=== PATIENT | female | born 1985 ===

== ENCOUNTER 2022-02-13 08:21 | Inpatient (IN) ==
[2022-02-13] MEDS ORDERED: miSOPROStoL 50 MCG TAB PO ONE ×4 (09:22→22:15)
[2022-02-13] MEDS ORDERED: LACTATED RINGER'S 1,000 ML IV PRN (09:22)
[2022-02-13] MEDS ORDERED: OXYTOCIN 30 UNITS/500 ML BAG IV PRN (09:22)
[2022-02-13 10:09] LABS: Hematocrit (blood only) 31.8 % (34.1-44.9); Hemoglobin 10.4 g/dl (12.0-16.0); Mean Corpuscular Hemoglobin 27.8 pg (25.0-34.0); Mean Corpuscular Hgb Conc 32.7 g/dL (32.0-36.0); Platelet Count 173 K/uL (130-400); RDW Coefficient of Variation 13.2 % (11.5-14.5); RDW Standard Deviation 41.1 fL (36.4-46.3); Red Blood Count 3.74 M/uL (3.93-5.22); White Blood Count 7.87 K/ul (4.8-10.8)
[2022-02-13 10:58] LABS: Rubella IgG Ab Immune (Immune)
[2022-02-13] MEDS ORDERED: Nursing to Pharmacy Communication SCH (11:00)
[2022-02-13] MEDS: MONTELUKAST SODIUM 10 MG TABLET PO SCH (18:00)
[2022-02-13] MEDS: buprenorphine HCL 8 MG SUBL SL SCH (21:10)
[2022-02-14] MEDS ORDERED: miSOPROStoL 50 MCG TAB PO ONE ×2 (02:37→22:00)
[2022-02-14 06:56] LABS: HBSAG NON-REACTIVE (NON-REACTIVE)
[2022-02-14] MEDS ORDERED: BUTORPHANOL TARTRATE 1 MG/ML VIAL IV ONE (07:20)
[2022-02-14] MEDS ORDERED: ePHEDrine sulfate 50 MG/ML AMP ONE (07:57)
[2022-02-14] MEDS ORDERED: SODIUM CHLORIDE 0.9% INJ 10 ML VIAL ONE (07:57)
[2022-02-14] MEDS ORDERED: fentaNYL citrate 100 MCG/2 ML VIAL ONE (07:57)
[2022-02-14] MEDS ORDERED: BUPIVACAINE 0.25% 30 ML VIAL ONE (07:57)
[2022-02-14] MEDS ORDERED: LIDOCAINE 2%/EPINEPHRINE 1:200,000 20 ML SDV ONE (07:57)
[2022-02-14] MEDS ORDERED: fentaNYL 2MCG/ML ROPIVACAINE 1.25MG/ML 100 ML BAG EPI ONE (07:58)
[2022-02-14] MEDS ORDERED: NALOXONE HCL 1 MG in SODIUM CHLORIDE 0.9% 1000ML 1,000 ML IV PRN (08:00)
[2022-02-14] MEDS ORDERED: ePHEDrine sulfate 50 MG/ML AMP IV PRN (08:00)
[2022-02-14] MEDS ORDERED: NALOXONE HCL 0.4 MG/1 ML VIAL/CARP IV PRN (08:00)
[2022-02-14] MEDS ORDERED: diphenhydrAMINE 50 MG/ML VIAL IV PRN (08:00)
[2022-02-14] MEDS ORDERED: NALBUPHINE HCL INJ 10 MG/ML AMP IV PRN (08:00)
[2022-02-14] MEDS ORDERED: fentaNYL 2MCG/ML ROPIVACAINE 1.25MG/ML 100 ML BAG EPI PRN (08:00)
--- NOTE | 2022-02-14 08:00 | Anesthesiology Consultation ---
Date of Service February 14, 2022 Assessment & Plan (1) Encounter for pre-operative examination: Chart Review Chart Review: Acceptable Risk for Surgery and Patient NOT seen in Pre Admission Testing Consults Requested none History Height/Weight Height: 5 ft 4 in Weight: 82.554 kg Allergies Allergy/AdvReac Type Severity Reaction Status Date / Time No Known Allergies Allergy Unknown Verified 07/28/21 10:33 Medications Home Medications Medication Instructions Recorded Confirmed Last Taken buprenorphine HCl 8 mg sublingual 12 mg sublingual DAILY 08/02/18 08/02/18 02/13/22 07:30 tablet vits no.124-ferrous fum 1 tab PO DAILY 08/02/18 02/13/22 08/01/18 27 mg iron-folic acid 800 mcg tablet ( Vitamin) Active Medications Generic Name Dose Route Start Last Admin Trade Name Freq PRN Reason Stop Dose Admin Buprenorphine HCl 12 mg 02/13/22 21:00 02/13/22 21:10 Buprenorphine Hcl 8 Mg Subl SL 03/15/22 20:59 12 mg Q24H BRAYDEN Administration Protocol Lactated Ringer's 1,000 mls @ 125 mls/hr 02/13/22 09:22 02/14/22 07:35 Lr IV 02/15/22 09:21 999 mls/hr .Q8H PRN Infusion L&D Protocol Protocol Montelukast Sodium 10 mg 02/13/22 21:00 02/13/22 18:00 Montelukast Sodium 10 Mg Tablet PO 03/15/22 20:59 10 mg HS BRAYDEN Administration Past Medical History Medical History Buprenorphine dependence Past Surgical History Surgical History [place] teeth extracted Social History Smoking Status: Former smoker tobacco type: cigarettes Hx Alcohol Use: No Hx Substance Use: Yes substance use type: does not use, former substance user and painkillers Last Used Substance Other:: 9 years ago Physical Exam Vital Signs Last Vital Signs Temp 97.9 F 02/14/22 07:17 Pulse 74 02/14/22 07:56 Resp 18 02/14/22 07:17 BP 123/77 02/14/22 07:56 Testing Laboratory Results 02/13/22 09:46
[2022-02-14] MEDS: buprenorphine HCL 8 MG SUBL SL SCH ×2 (08:13→20:55)
[2022-02-14] MEDS ORDERED: OXYTOCIN 30 UNITS/500 ML BAG IV PRN ×2 (08:25→10:29)
--- NOTE | 2022-02-14 09:28 | Anesthesiology Progress Note ---
Date of Service February 14, 2022 Anesthesia Post Procedure Vital Signs Vital Signs: Temp Pulse Resp BP Pulse Ox 02/13/22 19:25 98.8 F 18 02/13/22 09:40 97.5 F L 20 02/14/22 09:25 84 97 02/14/22 09:22 76 125/71 02/14/22 09:20 77 98 02/14/22 09:15 74 18 98 02/14/22 09:10 76 99 02/14/22 09:08 83 122/63 02/14/22 09:03 97.3 F L 02/14/22 09:05 71 100 02/14/22 09:00 96 H 98 02/14/22 08:55 104 H 97 02/14/22 08:52 90 121/67 02/14/22 08:50 93 H 16 97 02/14/22 08:48 81 124/78 02/14/22 08:45 75 16 99 02/14/22 08:40 88 98 02/14/22 08:41 94 H 132/74 02/14/22 08:22 18 02/14/22 08:22 18 02/14/22 08:25 18 02/14/22 08:25 18 02/14/22 08:29 18 02/14/22 08:29 18 02/14/22 08:36 18 02/14/22 08:36 18 02/14/22 08:38 93 H 125/78 02/14/22 08:37 71 132/72 02/14/22 08:35 99 02/14/22 08:35 87 02/14/22 08:35 102 H 118/76 02/14/22 08:33 100 H 116/61 02/14/22 08:30 96 H 125/68 99 02/14/22 08:28 81 134/70 02/14/22 08:27 101 H 127/69 02/14/22 08:25 100 02/14/22 08:25 79 02/14/22 08:25 82 133/71 02/14/22 08:23 75 133/62 02/14/22 08:20 80 100 02/14/22 08:21 93 H 156/67 H 02/14/22 08:18 103 H 138/68 02/14/22 08:16 82 136/64 02/14/22 08:15 83 131/71 02/14/22 08:13 84 137/77 02/14/22 07:56 74 123/77 02/14/22 07:41 70 141/81 H 02/14/22 07:18 82 129/72 02/14/22 07:17 18 02/14/22 07:17 97.9 F 18 02/13/22 22:28 18 02/13/22 22:28 97.9 F 18 02/13/22 22:27 75 115/67 02/13/22 19:17 84 108/70 02/13/22 16:46 76 107/56 L 02/13/22 14:14 97.7 F 76 20 114/55 L 02/13/22 09:33 83 117/57 L Pain Intensity Abdomen: Pain Intensity: 9 Transfer of Care Handoff Completed per policy Notes Mental Status: alert / awake / arousable and participated in evaluation Patient Amnestic to Procedure: Yes Nausea / Vomiting: adequately controlled Pain: adequately controlled Airway Patency, RR, SpO2: stable & adequate BP & HR: stable & adequate Hydration State: stable & adequate Anesthetic Complications: no major complications apparent and Pt Satisfied with anesthetic care
[2022-02-14] MEDS ORDERED: Nursing to Pharmacy Communication SCH (10:15)
[2022-02-14] MEDS ORDERED: BENZOCAINE 20% AER SPR 82.5 GM CAN EXT PRN (10:29)
[2022-02-14] MEDS ORDERED: ACETAMINOPHEN 325 MG TAB PO PRN (10:29)
[2022-02-14] MEDS ORDERED: DIPHTHERIA/TETANUS/PERTUSSIS 0.5 ML SYR/VIAL IM ONE (10:29)
[2022-02-14] MEDS ORDERED: HYDROCORTISONE ACETATE 25 MG SUPP PR PRN (10:29)
[2022-02-14] MEDS ORDERED: bisacodyL 10 MG SUPP PR PRN (10:29)
[2022-02-14] MEDS ORDERED: METHYLERGONOVINE MALEATE 0.2 MG/ML AMP IM ONE (10:29)
--- NOTE | 2022-02-14 10:50 | Delivery Summary ---
DELIVERY NOTE: She is a 3, para 3, blood type is O positive, group B strep negative. Her du e date is 02/26/2022. She had a history of having oligohydramnios in previous pregnancies. She has been followed with ultrasounds to check on the fluid. Her last ultrasound was Wednesday prior to [facility] where her amniotic fluid index was a little over 6, putting her close to the 5 percentile. I the n gave her the option to be induced at night or waiting until Wednesday. She wanted to wait until . Wednesday morning, she came in, we got good heart tones and we started her giving p.o. Cytotec 50 mcg. We gave her 4 doses of p.o. Cytotec, the last one was about 2:30 in the morning of 02/15/20 when I came in about seven to check her, she was like 4+ cm. Cervix was anterior. She was having good strong contractions and breathing through subsequently fluid oven unloader, gave her IV Stadol and the n she received epidural. Got good pain relief from the epidural, contractions spaced out. We starte d to augment her with IV Pitocin and then we ruptured her membranes. There was essentially no notice able amniotic fluid at all. She went to full dilatation, pushed out a live male infant via direct oc ciput anterior position over an intact perineum. was suctioned through the mouth and the nose . Shoulders were delivered without difficulty. Cord was allowed to pulse for 1 minute, then clamped and cut. Cord blood was taken. With IV Pitocin running, the placenta was removed intact and we als o gave her a shot of IM Methergine to help with a contraction along with the Pitocin. Estimated bloo d loss was minimal. I would put it at 100 mL or even less. Apgars were deferred to the nurses. Job ID: [id number]
--- NOTE | 2022-02-14 11:26 | Anesthesia Procedure Note ---
Date of Service February 14, 2022 Anesthesia Post Epidural Note Vital Signs Vital Signs: Temp Pulse Resp BP Pulse Ox 97.9 F 67 16 124/60 97 02/14/22 10:30 02/14/22 11:01 02/14/22 11:00 02/14/22 11:01 02/14/22 10:20 Pain Intensity Abdomen: Pain Intensity: 0 Notes Mental Status: alert / awake / arousable and participated in evaluation Nausea / Vomiting: adequately controlled Pain: adequately controlled Airway Patency, RR, SpO2: stable & adequate BP & HR: stable & adequate Hydration State: stable & adequate Neuraxial Anesthesia: was administered and sensory block is resolving Anesthetic Complications: no major complications apparent and Pt Satisfied with anesthetic care Epidural: Removed without complications and With tip intact
[2022-02-14] MEDS: IBUPROFEN 600 MG TAB PO PRN ×2 (13:27→17:28)
[2022-02-14] MEDS: DOCUSATE SODIUM 100 MG CAP PO SCH (20:19)
[2022-02-14] MEDS: MONTELUKAST SODIUM 10 MG TABLET PO SCH (20:19)
[2022-02-14] MEDS ORDERED: buprenorphine HCL 8 MG SUBL SL SCH (21:00)
[2022-02-15] MEDS ORDERED: METHYLERGONOVINE MALEATE 0.2 MG/ML AMP ONE (00:49)
[2022-02-15 06:41] LABS: Hemoglobin 9.4 g/dl (12.0-16.0); Mean Corpuscular Hemoglobin 28.1 pg (25.0-34.0); Mean Corpuscular Hgb Conc 32.4 g/dL (32.0-36.0); Mean Corpuscular Volume 86.6 fL (80.0-100.0); Mean Platelet Volume 11.3 fL (9.4-12.3); Platelet Count 166 K/uL (130-400); RDW Coefficient of Variation 13.3 % (11.5-14.5); RDW Standard Deviation 41.8 fL (36.4-46.3); Red Blood Count 3.35 M/uL (3.93-5.22); White Blood Count 10.83 K/ul (4.8-10.8)
[2022-02-15] MEDS: DOCUSATE SODIUM 100 MG CAP PO SCH ×2 (07:58→21:23)
[2022-02-15] MEDS: buprenorphine HCL 8 MG SUBL SL SCH ×2 (07:58→21:24)
[2022-02-15] MEDS: IBUPROFEN 600 MG TAB PO PRN ×3 (07:58→21:23)
[2022-02-15] MEDS: PRENATAL VITAMIN 1 TAB PO SCH (07:58)
--- NOTE | 2022-02-15 08:22 | Obstetrical Progress Note ---
Date of Service February 15, 2022 Assessment & Plan Admission and Anticipated Discharge Date Admission Date: February 13, 2022 Subjective abdomen soft and non tender no calf tenderness ambulating well vaginal bleeding scant hgb 9.4 Results & Data ([facility]) Vital Signs (Past 12 Hours) Vital Signs Temp Pulse Resp BP Pulse Ox O2 Del Method 02/15/22 04:20 36.5 C 88 18 103/71 99 Room Air 02/15/22 00:45 36.6 C 75 18 104/68 99 Room Air
[2022-02-15] MEDS ORDERED: bisacodyL 5 MG TABEC PO SCH (20:00)
[2022-02-15] MEDS: MONTELUKAST SODIUM 10 MG TABLET PO SCH (21:23)
[2022-02-16] MEDS: DOCUSATE SODIUM 100 MG CAP PO SCH ×2 (07:35→21:45)
[2022-02-16] MEDS: IBUPROFEN 600 MG TAB PO PRN (07:35)
[2022-02-16] MEDS: PRENATAL VITAMIN 1 TAB PO SCH (07:35)
[2022-02-16] MEDS: buprenorphine HCL 8 MG SUBL SL SCH ×2 (07:36→21:45)
--- NOTE | 2022-02-16 09:13 | Obstetrical Progress Note ---
Date of Service February 16, 2022 Assessment & Plan Admission and Anticipated Discharge Date Admission Date: February 13, 2022 Subjective abdomen soft and non tender no calf tenderness ambulating well vaginal bleeding scant hgb 10.0 Results & Data ([facility]) Vital Signs (Past 12 Hours) Vital Signs Temp Pulse Resp BP Pulse Ox O2 Del Method 02/16/22 07:25 36.4 C L 82 16 115/74 97 Room Air 02/16/22 00:35 36.4 C L 87 18 102/69 97 Room Air
[2022-02-16] MEDS: MONTELUKAST SODIUM 10 MG TABLET PO SCH (21:46)
== END 2022-02-16 22:00 | disposition home or self-care (01) | DRG 807 ==
LOC: 4S1 08:21 → 4E2 02-14 13:16
DX: Z3A.39 39 weeks gestation of pregnancy; Z87.59 Personal history of other complications of pregnancy, childbirth and the puerperium; Z37.0 Single live birth; O80 Encounter for full-term uncomplicated delivery